=== PATIENT | female | born 1965 | race African-American/Black ===

== ENCOUNTER 2021-03-22 10:14 | Outpatient (CLI) | payer OTHER | END 2021-03-22 10:15 | disposition home or self-care (01) | LOC: CSHMAMMO 10:14 | PROVIDERS: ATTEND Physician Assistant | DX: Z12.31 Encounter for screening mammogram for malignant neoplasm of breast (principal) | CPT/HCPCS: 77067 ==

== ENCOUNTER 2022-05-12 10:12 | Outpatient (CLI) | payer MEDICAID, OTHER | END 2022-05-12 10:13 | disposition home or self-care (01) | LOC: CSHMAMMO 10:12 | PROVIDERS: ATTEND Physician Assistant | DX: Z12.31 Encounter for screening mammogram for malignant neoplasm of breast (principal) | CPT/HCPCS: 77067 ==